=== PATIENT | male | born 1950 | race Caucasian/White ===

== ENCOUNTER 2021-07-29 05:02 | Day surgery (SDC) | payer OTHER ==
[2021-07-25 18:42] VITALS: BMI 39.1
[2021-07-29] MEDS ORDERED: BUPIVACAINE HCL/PF 0.5% (5MG/ML) 10 ML VIAL ONE (07:17)
[2021-07-29] MEDS ORDERED: LIDOCAINE HCL/PF 1% SDV 5ML VIAL ONE (07:17)
[2021-07-29] MEDS ORDERED: IOHEXOL 180 MG/1 ML ML IJ ONE (09:24)
[2021-07-29] MEDS ORDERED: BUPIVACAINE HCL/PF 0.5% (5MG/ML) 10 ML VIAL IJ ONE (09:26)
[2021-07-29 10:34] VITALS: PULSE 70; TEMP 98
[2021-07-29 10:40] VITALS: BP 120/80
== END 2021-07-29 10:05 | disposition home or self-care (01) ==
LOC: JASU-SURG 05:02
PROVIDERS: ATTEND Pain Medicine Pain Medicine
PROC: 3E0T33Z Introduction of Anti-inflammatory into Peripheral Nerves and Plexi, Percutaneous Approach (ICD-10-PCS; 2021-07-29)
PROC: 3E0T3BZ Introduction of Anesthetic Agent into Peripheral Nerves and Plexi, Percutaneous Approach (ICD-10-PCS; principal; 2021-07-29 09:00)
DX: M47.812 Spondylosis without myelopathy or radiculopathy, cervical region (principal)
CPT/HCPCS: 76000-TC-FY